=== PATIENT | male | born 1995 | race African-American/Black ===

== ENCOUNTER 2016-07-29 00:34 | Emergency (ER) | payer OTHER ==
[~2016-07-29] VITALS: Ht 188 cm; Wt 77.1 kg
[~2016-07-29 00:34] MED LIST: No home medications; ZOLO50TA PO
[2016-07-29 02:19] VITALS: BP 144/87
[2016-08-06] MEDS ORDERED: NAPR500T2 PO (19:20)
[2016-08-06] MEDS ORDERED: DRIS50002 PO (19:20)
== END 2016-07-29 02:20 | disposition home or self-care (01) ==
LOC: M ED 02:16
DX: F43.9 Reaction to severe stress, unspecified (principal); F32.9 Major depressive disorder, single episode, unspecified

== ENCOUNTER → 2016-08-11 | Outpatient (CLI) | payer SELFPAY ==
[~2016-08-11] MED LIST changes: +DRIS50002 PO; +NAPR500T2 PO
== END ==
LOC: M OUTALCOH 07:41
PROVIDERS: ATTEND Psychiatry & Neurology Psychiatry
DX: Z03.89 Encounter for observation for other suspected diseases and conditions ruled out (principal)

== ENCOUNTER 2018-01-26 20:09 | Emergency (ER) | payer OTHER, SELFPAY ==
[2018-01-26] MEDS: dexameTHASONE 4 MG/ML 1ML VIAL (J1100) PO (21:49)
[2018-01-26] MEDS: BENZONATATE 100 MG CAP PO (21:49)
[2018-01-26] MEDS: ALBUTEROL SULFATE 2.5 MG/0.5 ML INH NEB SOLN NEB (22:10)
[2018-01-26] MEDS: ONDANSETRON 4 MG ORAL DISINTEGRATING TAB (Q0162 PER 1MG) PO (22:22)
[2018-01-26] MEDS ORDERED: ALBUTEROL SULFATE 2.5 MG/0.5 ML INH NEB SOLN NEB (23:15)
== END 2018-01-26 23:21 | disposition left against medical advice (07) ==
LOC: M ED 20:09
DX: R05 Cough (principal); R50.9 Fever, unspecified; R06.2 Wheezing; R11.2 Nausea with vomiting, unspecified; R19.7 Diarrhea, unspecified; F17.210 Nicotine dependence, cigarettes, uncomplicated
CPT/HCPCS: J1100